=== PATIENT | male | born 1990 | race African-American/Black ===

== ENCOUNTER 2020-01-15 15:00 | Emergency (ER) | payer SELFPAY ==
[~2020-01-15] VITALS: Ht 182.9 cm; Wt 82.0 kg
[2020-01-15 15:06] VITALS: BP 134/78
== END 2020-01-15 16:00 | disposition left against medical advice (07) ==
LOC: ER 15:00
DX: R55 Syncope and collapse (principal); R45.1 Restlessness and agitation; R00.0 Tachycardia, unspecified; F19.10 Other psychoactive substance abuse, uncomplicated
CPT/HCPCS: 99283